=== PATIENT | female | born 1985 | race Caucasian/White ===

== ENCOUNTER 2017-09-30 13:29 | Observation (INO) | payer OTHER ==
[~2017-09-30] VITALS: Ht 165.1 cm; Wt 62.6 kg
[2017-09-30 13:38] VITALS: BP 123/73
[2017-09-30] MEDS ORDERED: LEXAPRO20 MG PO ×2 (13:41)
[2017-09-30 14:04] LABS: ABSOLUTE EOSINOPHILS 0.1 thou/uL (0.0-0.7); ABSOLUTE LYMPHOCYTES 1.4 thou/uL (0.8-5.3); ABSOLUTE MONOCYTES 0.7 thou/uL (0.0-1.2); ABSOLUTE NEUTROPHILS 6.9 thou/uL (1.6-8.1); BASOPHILS 0.4 %; HEMATOCRIT 41.8 % (37.0-47.0); HEMOGLOBIN 14.1 gm/dL (12.0-15.0); LYMPHOCYTES 15.2 %; MCH 30.7 pg (26.0-34.0); MCHC 33.6 g/dL (28.0-37.0); MCV 91.4 fL (80.0-100.0); MPV 7.9 fl. (7.2-11.1); NUCLEATED RBCS 0 /100WBC; PLATELET COUNT* 206 thou/uL (150-400); POLYS 75.4 %; RBC 4.57 mil/uL (4.20-5.00); RDW-CV 13.7 % (10.5-14.5); WBC 9.2 thou/uL (4.0-11.0)
[2017-09-30 14:13] LABS: CALCIUM 8.4 mg/dL (8.5-10.1); CREATININE 0.7 mg/dL (0.6-1.3); POTASSIUM 3.7 mmol/L (3.5-5.1)
[2017-09-30 14:18] LABS: ALBUMIN 3.5 g/dL (3.4-5.0); TOTAL BILIRUBIN 0.4 mg/dL (<0.1-1.0); TOTAL PROTEIN 6.2 g/dL (6.4-8.2)
[2017-09-30 14:35] LABS: URINE BILIRUBIN NEGATIVE (Negative); URINE BLOOD NEGATIVE (Negative); URINE CLARITY CLEAR; URINE COLOR YELLOW; URINE GLUCOSE-RANDOM NEGATIVE (Negative); URINE KETONES 2+ (Negative); URINE LEUKOCYTES-REFLEX NEGATIVE (Negative); URINE NITRITE-REFLEX NEGATIVE (Negative); URINE PROTEIN NEGATIVE (Negative); URINE SPECIFIC GRAVITY >= 1.030 (1.005-1.030); URINE UROBILINOGEN 0.2 E.U./dl (0.2-1.0)
--- NOTE | 2017-09-30 15:20 | EKG ---
[place] [address] ELECTROCARDIOGRAM REPORT Name: PHOENIX LOGAN Room: [facility]#: [id number] Admission: 09/30/17 Attend Phys: Discharge: Date of : 87 Report #: [id number] THIS REPORT FOR: //name// [facility] ED Test Date: 2017-09-30 Test Time: 14:02:47 Pat Name: PHOENIX LOGAN Department: Room: Gender: F Cosmetic Sales Assistant: Derick BRYAN : 1985 Requested By: Jackelin Malloy Order Number: [id number] MD: Perico Toribio Measurements Intervals [place] Rate: 73 P: 54 GA: 123 QRS: 71 QRSD: 93 T: 47 QT: 395 QTc: 436 Interpretive Statements Sinus rhythm Low voltage, precordial leads No previous ECG available for comparison Electronically Signed On 09-30-2017 15:20:21 CDT by Perico Toribio [email or web address] <ELECTRONICALLY SIGNED> By: Perico Toribio MD, [facility] 09/30/17 1520 1402 1402 Perico Toribio MD, FACC /EPI
[2017-09-30 16:36] VITALS: BP 121/70
[2017-09-30 16:46] VITALS: BP 105/61
--- NOTE | 2017-09-30 17:19 | NUR ---
PT TRANSFERRED TO ROOM 230. VSS. CARDIAC MONTIORING IN PLACE SR. ADMISSION HISTORY AND ASSESSMENT COMPELTED CHARTED. PT ALERT AND ORIETNEDX4. PT ON RA WITH O2 SAT 99% PT DENIES ANY COMPLAITNS OF PAIN OR DISCOMFORT. IV SALINE LOCKED. PT ORIETNED TO ROOM AND CALL LIGHT. CALL LIGHT IS WITHIN REACH. WILL CONTINUE TO MONITOR.
--- NOTE | 2017-09-30 18:24 | NUR ---
VSS,CARDIAC MONITORING IN PLACE WITH NO CHANGES.PT PROGRESSING TOWARDS GOALS.NO C/O PAIN.IV PATENT AND SALINE LOCKED.PT INFORMED OF PLAN OF CARE AND COMMUNICATES UNDERSTANDING.HOURLY ROUNDING COMPLETED FOR PT SAFETY.CALL LIGHT WITHIN REACH.WILL CONTINUE TO MONITOR FOR DURATION OF SHIFT.
[2017-09-30 20:00] VITALS: BP 102/58
[2017-10-01] VITALS: BP 104/67
[2017-10-01 04:00] VITALS: BP 101/65
[2017-10-01 04:57] LABS: HEMATOCRIT 41.6 % (37.0-47.0)
[2017-10-01 08:15] VITALS: BP 99/49
--- NOTE | 2017-10-01 09:47 | NUR ---
MET WITH PT TO DISCUSS HOME SITUATION/DC PLANNING. PT LIVES WITH SPOUSE AND CHILDREN. SHE WORKS OUTSIDE THE HOME AND IS INDEPENDENT AND ACTIVE. USES NO EQUIPMENT. WAS ASKED TO CHECK [employer] COVERAGE, CALLED IN TO [facility] TO JUST CHECK COPAY. PT HAS $0 COPAY FOR 15MG AND 2MG SCRIPTS. PT UPDATED. NO OTHER DC NEEDS ID'D
--- NOTE | 2017-10-01 10:00 | NUR ---
REC'D REPORT FROM [facility] AND [facility] CARE AT 0730. A & O X4. MACHINE SHOP INSPECTOR IN PLACE, SR. PT HAS NO C/O OF PAIN OR DISTRESS. ASSESSMENT COMPLETE. MEDS PER MAR. CALL LIGHT IN REACH. CONTINUE TO MONITOR.
[2017-10-01] MEDS ORDERED: XARELTO15 MG PO (12:10)
[2017-10-01] MEDS ORDERED: XARELTO20 MG PO (12:10)
[2017-10-01 12:18] VITALS: BP 104/54
[2017-10-01 14:58] VITALS: BP 104/54
--- NOTE | 2017-10-01 15:59 | NUR ---
DISCHARGE ORDER COMPLETE. DISCHARGE EDUCATION GIVEN, REVIEWED MEDICATION LIST. ANSWERED PT QUESTIONS TO PT SATISFACTION. PT PRESENT FOR EDUCATION. SCRIPT GIVEN. PT LEFT UNIT AT 1555 WITH AND NURSING STAFF, AMBULATED TO HOSPITAL ENTRANCE. PT'S TO TRANSPORT PT TO HOME VIA PERSONAL VEHICLE.
== END 2017-10-01 15:55 | disposition home or self-care (01) ==
LOC: M.ERS 13:29 → M.2W 15:36 → M.TBA-ER 15:36 → M.2W 15:36
PROVIDERS: Nurse Practitioner Family; ADMIT Internal Medicine
DX: I26.99 Other pulmonary embolism without acute cor pulmonale (principal); F32.9 Major depressive disorder, single episode, unspecified